=== PATIENT | female | born 1960 ===

== ENCOUNTER → 2022-04-10 | Day surgery (SDC) | payer OTHER ==
[~2022-04-10] VITALS: Ht 157.5 cm; Wt 54.4 kg
[~2022-04-10] MED LIST: JANUMET 50-1,01 EACH PO; JARDIANCE10 MG PO; LANTUS SOL100 UNIT/1; LOSARTAN POTASS25 MG PO
== END | disposition home or self-care (01) ==
LOC: ADM 04-04 12:00 → CIR.AMB 05:18
PROVIDERS: ATTEND Surgery
DX: D48.1 Neoplasm of uncertain behavior of connective and other soft tissue (principal); Z86.16 Personal history of COVID-19; I10 Essential (primary) hypertension; E11.9 Type 2 diabetes mellitus without complications; Z79.84 Long term (current) use of oral hypoglycemic drugs